=== PATIENT | female | born 1970 | race Caucasian/White ===

== ENCOUNTER 2016-08-19 10:00 | Emergency (ER) | payer OTHER ==
[~2016-08-19 10:00] MED LIST: /PANT40TA; ALLE25CA OR; AMBI10TA PO; AMBI5TAB; ASPI325T; BENTYL10 PO; CALC600T10 PO; CLON1TAB PO; DUONSOL; FERR325T; FERR325T OR; FOLI1TAB; IBUP600T OR; KLON0.5T; LEVA250T; MELA1TAB15 PO; MIRA33504 PO; NAPR250T45 PO; NIFEREX PO; NORC5TAB PO; NUVAMIS2 PV; POTA20TA; PRIL40CA PO; REME15TA; SELSUN BLUE; SENO8.6T10 PO; THERGRAN; THIA100T; UNIS25TA2 PO; ZOLO100T; ZOLO50TA PO; ZOLOFT100 PO
--- NOTE | 2016-08-19 11:09 | EDDOCDS ---
Physician Documentation [facility] Name: Cristal Hong Age: 45 yrs Sex: Female : 1970 Arrival Date: 08/19/2016 Time: 10:00 Bed Triage 2 Private MD: Saji Crowell [facility] Disposition: 08/19/16 11:03 Discharged to Home/Self Care. Impression: Contusion of other part of head, Contusion of eyeball and orbital tissues. - Condition is Stable. - Discharge Instructions: Facial or Scalp Contusion, [id number]. - Medication Reconciliation, Local Pharmacy Hours form. - Follow up: Saji Crowell; When: Call to arrange an appointment; Reason: Further diagnostic work-up, Recheck today's complaints, Continuance of care. Follow up: Emergency Department; When: As soon as possible; Reason: Worsening of conditions. - Problem is new. - Symptoms are unchanged. Historical: - Allergies: no known allergies; - Home Meds: 1. Klonopin 1 mg Oral tab as needed 2. Zoloft 50 mg oral tab 1 tab once daily 3. Ambien 10 mg Oral tab 1 tab once daily 4. nuvaring 5. Melatonin Oral nightly - PMHx: Anemia; Anxiety; Depression; neurofibromytosis; - PSHx: Appendectomy; left elbow fracture; - Social history: Smoking status: Smoking status: Patient states was never smoker of tobacco. No barriers to communication noted, The patient speaks fluent Gabonese, Speaks appropriately for age. - Family history: Not pertinent. - : The pt / caregiver states he / she is not on anticoagulants. Home medication list is obtained from the patient. - Exposure Risk Screening:: None identified. 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 1 in. (154.94 cm); Pain 6/10; 10:01 Body Mass Index 21.73 (52.16 kg, 154.94 cm) sew [place] Coma Score: 10:06 Eye Response: spontaneous(4). Verbal Response: oriented(5). Motor Response: obeys hs1 commands(6). Total: 15. Signatures: Ruth Siu,RN RN ck1 Vish Tovar PA PA btw Gracia Bernabe RN RN hs1 MTDD
--- NOTE | 2016-08-19 11:09 | EDDOCDS ---
Nurse's Notes [facility] Name: Cristal Hong Age: 45 yrs Sex: Female : 1970 Arrival Date: 08/19/2016 Time: 10:00 Bed Triage 2 Private MD: Saji Crowell NCFM Diagnosis: Contusion of other part of head;Contusion of eyeball and orbital tissues Presentation: 08/19 10:06 Presenting complaint: Patient states: fell last night. Fell down approx 5 ft. Patient hs1 has bruising dark purple and red to bilateral eyes and swelling present to left side of forehead. Patient also noted to have dried blood. Patient reports tripping on metal strip on stairs. This patient has no additional risk factors. Mechanism of Injury: resulted from Fall from height greater than 5 stairs;. Adult Sepsis Screening: The patient does not have new or worsening altered mentation. Patient's respiratory rate is less than 22. Systolic blood pressure is greater than 100. Patient has a qSOFA score of 0- Negative Sepsis Screen. Suicide/Homicide risk assessment- the patient denies having any suicidal and/or homicidal ideations and does not present with any other emotional, behavioral or mental health complaints. Status: Patient is not a route service manager or dependent. Transition of care: patient was not received from another setting of care. 10:06 Acuity: YOMI Level 3 hs1 10:06 Method Of Arrival: Walkin/Carried/Asstd hs1 Triage Assessment: 10:16 General: Appears in no apparent distress, Behavior is anxious, cooperative. Pain: hs1 Location: forehead Pain currently is 5 out of 10 on a pain scale. HIV screening NA for this visit Offered previously. Neurological: Level of Consciousness is awake, alert, obeys commands, Reports no additional symptoms. Respiratory: No deficits noted. Derm: Bruising that is bright red, dark purple, on right eye and left eye. 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 Klonopin 1 mg Oral tab as needed 2. Zoloft 50 mg oral tab 1 tab once daily 3. Ambien 10 mg Oral tab 1 tab once daily 4. nuvaring 5. Melatonin Oral nightly - PMHx: Anemia; Anxiety; Depression; neurofibromytosis; - PSHx: Appendectomy; left elbow fracture; - Social history: Smoking status: Smoking status: Patient states was never smoker of tobacco. No barriers to communication noted, The patient speaks fluent Iraqi, Speaks appropriately for age. - Family history: Not pertinent. - : The pt / caregiver states he / she is not on anticoagulants. Home medication list is obtained from the patient. - Exposure Risk Screening:: None identified. Screenin:05 Screening information is obtained from the patient. Fall risk: At risk due to prior ck1 history of falls, The following interventions are performed due to a positive Fall Risk Screen: Fall Risk is added to Special Handling on the patient Summary Screen. A Fall Risk Bracelet was applied to the patient. Side Rails are placed in the up position. A Call House is given with instruction to call for help when getting out of bed. Fall Alert bracelet is placed on the patient. Assistance ADL's: requires no assistance with activities of daily living. Abuse/DV Screen: The patient / caregiver reports he/she is: not in a situation that causes fear, pain or injury. Nutritional screening: No deficits noted. home support is adequate. 11:07 Advance Directives: Currently, there is no health care proxy. ck1 Assessment: 11:07 General: Appears in no apparent distress, comfortable, Behavior is appropriate for age, ck1 cooperative. Pain: Location: head Pain currently is 5 out of 10 on a pain scale. Neurological: Level of Consciousness is awake, alert, obeys commands, Oriented to person, place, time. Respiratory: Respiratory effort is unlabored, Respiratory pattern is regular, symmetrical. GI: No deficits noted. Derm: Bruising that is dark purple, on right eye and left eye. Musculoskeletal: Circulation, motion, and sensation intact Range of motion intact in all extremities. Vital Signs: 10:01 BP 111 / 60; Pulse 70; Resp 16; Temp 97.7(T); Pulse Ox 100% on R/A; Weight 52.16 kg; sew Height 5 ft. 1 in. (154.94 cm); Pain 6/10; 10:01 Body Mass Index 21.73 (52.16 kg, 154.94 cm) sew Vitals: 10:01 Log In Time: August 19, 2016 at 10:00. sew [place] Coma Score: 10:06 Eye Response: spontaneous(4). Verbal Response: oriented(5). Motor Response: obeys hs1 commands(6). Total: 15. ED Course: 10:01 Patient visited by Manasa Odom. sew 10: Saji Crowell is Private Physician. sew 10:01 Patient moved to Waiting sew 10:02 Patient visited by Manasa Odom. sew 10:02 Patient moved to Pre RCE sew 10:08 Triage Initiated hs1 10:41 Vish Tovar PA is PHCP. btw 10:41 Manasa Cabrera MD is Attending Physician. btw 10:41 Patient visited by Vish Tovar PA. btw 10:41 Patient moved to Triage 2 jrd 11:03 Saji Crowell is Referral Physician. btw 11:04 The patient / caregiver is instructed regarding the plan of care and ED course. ck1 11:05 No IV's were initiated during this patient's visit. No procedures done that require ck1 assistance. Order Results: There are currently no results for this order. Outcome: 11:03 Discharge ordered by Provider. btw 11:04 Discharge Assessment: Patient awake, alert and oriented x 3. No cognitive and/or ck1 functional deficits noted. Patient verbalized understanding of disposition instructions. patient administered narcotics - no. The following High Risk Discharge criteria are identified: None. Discharged to home ambulatory. Condition: stable. No special radiology studies were completed. Property :Personal belongings accompany Pt. 11:08 Patient left the ED. ck1 Signatures: Ruth SiuRN RN ck1 Vish Tovar PA PA bt Gracia Bernabe RN RN hs1 Manasa Odom Joseph, JIMMIE ACTIMIZE ARCHITECT jrd MTDD
--- NOTE | 2016-08-21 12:09 | EDDOCDS ---
Nurse's Notes [facility] Name: Cristal Hong Age: 45 yrs Sex: Female : 1970 Arrival Date: 08/19/2016 Time: 10:00 Bed Triage 2 Private MD: Saji Crowell NCFM Diagnosis: Contusion of other part of head;Contusion of eyeball and orbital tissues Presentation: 08/19 10:06 Presenting complaint: Patient states: fell last night. Fell down approx 5 ft. Patient hs1 has bruising dark purple and red to bilateral eyes and swelling present to left side of forehead. Patient also noted to have dried blood. Patient reports tripping on metal strip on stairs. This patient has no additional risk factors. Mechanism of Injury: resulted from Fall from height greater than 5 stairs;. Adult Sepsis Screening: The patient does not have new or worsening altered mentation. Patient's respiratory rate is less than 22. Systolic blood pressure is greater than 100. Patient has a qSOFA score of 0- Negative Sepsis Screen. Suicide/Homicide risk assessment- the patient denies having any suicidal and/or homicidal ideations and does not present with any other emotional, behavioral or mental health complaints. Status: Patient is not a answering service operator or dependent. Transition of care: patient was not received from another setting of care. 10:06 Acuity: YOMI Level 3 hs1 10:06 Method Of Arrival: Walkin/Carried/Asstd hs1 Triage Assessment: 10:16 General: Appears in no apparent distress, Behavior is anxious, cooperative. Pain: hs1 Location: forehead Pain currently is 5 out of 10 on a pain scale. HIV screening NA for this visit Offered previously. Neurological: Level of Consciousness is awake, alert, obeys commands, Reports no additional symptoms. Respiratory: No deficits noted. Derm: Bruising that is bright red, dark purple, on right eye and left eye. 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 Klonopin 1 mg Oral tab as needed 2. Zoloft 50 mg oral tab 1 tab once daily 3. Ambien 10 mg Oral tab 1 tab once daily 4. nuvaring 5. Melatonin Oral nightly - PMHx: Anemia; Anxiety; Depression; neurofibromytosis; - PSHx: Appendectomy; left elbow fracture; - Social history: Smoking status: Smoking status: Patient states was never smoker of tobacco. No barriers to communication noted, The patient speaks fluent Lithuanian, Speaks appropriately for age. - Family history: Not pertinent. - : The pt / caregiver states he / she is not on anticoagulants. Home medication list is obtained from the patient. - Exposure Risk Screening:: None identified. Screenin:05 Screening information is obtained from the patient. Fall risk: At risk due to prior ck1 history of falls, The following interventions are performed due to a positive Fall Risk Screen: Fall Risk is added to Special Handling on the patient Summary Screen. A Fall Risk Bracelet was applied to the patient. Side Rails are placed in the up position. A Call House is given with instruction to call for help when getting out of bed. Fall Alert bracelet is placed on the patient. Assistance ADL's: requires no assistance with activities of daily living. Abuse/DV Screen: The patient / caregiver reports he/she is: not in a situation that causes fear, pain or injury. Nutritional screening: No deficits noted. home support is adequate. 11:07 Advance Directives: Currently, there is no health care proxy. ck1 Assessment: 11:07 General: Appears in no apparent distress, comfortable, Behavior is appropriate for age, ck1 cooperative. Pain: Location: head Pain currently is 5 out of 10 on a pain scale. Neurological: Level of Consciousness is awake, alert, obeys commands, Oriented to person, place, time. Respiratory: Respiratory effort is unlabored, Respiratory pattern is regular, symmetrical. GI: No deficits noted. Derm: Bruising that is dark purple, on right eye and left eye. Musculoskeletal: Circulation, motion, and sensation intact Range of motion intact in all extremities. Vital Signs: 10:01 BP 111 / 60; Pulse 70; Resp 16; Temp 97.7(T); Pulse Ox 100% on R/A; Weight 52.16 kg; sew Height 5 ft. 1 in. (154.94 cm); Pain 6/10; 10:01 Body Mass Index 21.73 (52.16 kg, 154.94 cm) sew Vitals: 10:01 Log In Time: August 19, 2016 at 10:00. sew [place] Coma Score: 10:06 Eye Response: spontaneous(4). Verbal Response: oriented(5). Motor Response: obeys hs1 commands(6). Total: 15. ED Course: 10:01 Patient visited by Manasa Odom. sew 10: Saji Crowell is Private Physician. sew 10:01 Patient moved to Waiting sew 10:02 Patient visited by Manasa Odom. sew 10:02 Patient moved to Pre RCE sew 10:08 Triage Initiated hs1 10:41 Vish Tovar PA is PHCP. btw 10:41 Manasa Cabrera MD is Attending Physician. btw 10:41 Patient visited by Vish Tovar PA. btw 10:41 Patient moved to Triage 2 jrd 11:03 Saji Crowell is Referral Physician. btw 11:04 The patient / caregiver is instructed regarding the plan of care and ED course. ck1 11:05 No IV's were initiated during this patient's visit. No procedures done that require ck1 assistance. 13:24 T-Sheet-- Draft Copy was scanned into [employer] Screening and attached to record. gb Order Results: There are currently no results for this order. Outcome: 11:03 Discharge ordered by Provider. btw 11:04 Discharge Assessment: Patient awake, alert and oriented x 3. No cognitive and/or ck1 functional deficits noted. Patient verbalized understanding of disposition instructions. patient administered narcotics - no. The following High Risk Discharge criteria are identified: None. Discharged to home ambulatory. Condition: stable. No special radiology studies were completed. Property :Personal belongings accompany Pt. 11:08 Patient left the ED. ck1 Signatures: Radha Gonzales, Reg Reg Ruth DiazRN RN ck1 Vish Tovar PA PA btGracia Fuller RN RN hs1 Manasa Odom sew Jayce Zhang PCA INTERNATIONAL MANAGER jrd Chart Complete MTDD
--- NOTE | 2016-08-21 12:09 | EDDOCDS ---
Physician Documentation [facility] Name: Cristal Hong Age: 45 yrs Sex: Female : 1970 Arrival Date: 08/19/2016 Time: 10:00 Bed Triage 2 Private MD: Saji Crowell [facility] Disposition: 08/19/16 11:03 Discharged to Home/Self Care. Impression: Contusion of other part of head, Contusion of eyeball and orbital tissues. - Condition is Stable. - Discharge Instructions: Facial or Scalp Contusion, [id number]. - Medication Reconciliation, Local Pharmacy Hours form. - Follow up: Saji Crowell; When: Call to arrange an appointment; Reason: Further diagnostic work-up, Recheck today's complaints, Continuance of care. Follow up: Emergency Department; When: As soon as possible; Reason: Worsening of conditions. - Problem is new. - Symptoms are unchanged. Historical: - Allergies: no known allergies; - Home Meds: 1. Klonopin 1 mg Oral tab as needed 2. Zoloft 50 mg oral tab 1 tab once daily 3. Ambien 10 mg Oral tab 1 tab once daily 4. nuvaring 5. Melatonin Oral nightly - PMHx: Anemia; Anxiety; Depression; neurofibromytosis; - PSHx: Appendectomy; left elbow fracture; - Social history: Smoking status: Smoking status: Patient states was never smoker of tobacco. No barriers to communication noted, The patient speaks fluent Mauritian, Speaks appropriately for age. - Family history: Not pertinent. - : The pt / caregiver states he / she is not on anticoagulants. Home medication list is obtained from the patient. - Exposure Risk Screening:: None identified. 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 1 in. (154.94 cm); Pain 6/10; 10:01 Body Mass Index 21.73 (52.16 kg, 154.94 cm) sew [place] Coma Score: 10:06 Eye Response: spontaneous(4). Verbal Response: oriented(5). Motor Response: obeys hs1 commands(6). Total: 15. MDM: 13:24 T-Sheet-- Draft Copy was scanned into [employer] and attached to record. gb Signatures: Radha Gonzales, Reg Reg gb Ruth SiuRN RN ck1 Vish Tovar PA PA btw Gracia Bernabe RN RN hs1 The chart was reviewed and I authenticate all verbal orders and agree with the evaluation and treatment provided.Attachments: 13:24 T-Sheet-- Draft Copy gb Chart Complete MTDD
--- NOTE | 2016-08-21 12:09 | EDDOCDS ---
Physician Documentation [facility] Name: Cristal Hong Age: 45 yrs Sex: Female : 1970 Arrival Date: 08/19/2016 Time: 10:00 Bed Triage 2 Private MD: Saji Crowell [facility] Disposition: 08/19/16 11:03 Discharged to Home/Self Care. Impression: Contusion of other part of head, Contusion of eyeball and orbital tissues. - Condition is Stable. - Discharge Instructions: Facial or Scalp Contusion, [id number]. - Medication Reconciliation, Local Pharmacy Hours form. - Follow up: Saji Crowell; When: Call to arrange an appointment; Reason: Further diagnostic work-up, Recheck today's complaints, Continuance of care. Follow up: Emergency Department; When: As soon as possible; Reason: Worsening of conditions. - Problem is new. - Symptoms are unchanged. Historical: - Allergies: no known allergies; - Home Meds: 1. Klonopin 1 mg Oral tab as needed 2. Zoloft 50 mg oral tab 1 tab once daily 3. Ambien 10 mg Oral tab 1 tab once daily 4. nuvaring 5. Melatonin Oral nightly - PMHx: Anemia; Anxiety; Depression; neurofibromytosis; - PSHx: Appendectomy; left elbow fracture; - Social history: Smoking status: Smoking status: Patient states was never smoker of tobacco. No barriers to communication noted, The patient speaks fluent [place] Verdean, Speaks appropriately for age. - Family history: Not pertinent. - : The pt / caregiver states he / she is not on anticoagulants. Home medication list is obtained from the patient. - Exposure Risk Screening:: None identified. 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 1 in. (154.94 cm); Pain 6/10; 10:01 Body Mass Index 21.73 (52.16 kg, 154.94 cm) sew [place] Coma Score: 10:06 Eye Response: spontaneous(4). Verbal Response: oriented(5). Motor Response: obeys hs1 commands(6). Total: 15. MDM: 13:24 T-Sheet-- Draft Copy was scanned into [employer] and attached to record. gb Signatures: Radha Gonzales, Reg Reg gb Ruth SiuRN RN ck1 Vish Tovar PA PA btw Gracia Bernabe RN RN hs1 The chart was reviewed and I authenticate all verbal orders and agree with the evaluation and treatment provided.Attachments: 13:24 T-Sheet-- Draft Copy gb Chart Complete MTDD
== END 2016-08-19 11:08 | disposition home or self-care (01) ==
LOC: M ED 10:00
DX: S00.83XA Contusion of other part of head, initial encounter (principal); W10.9XXA Fall (on) (from) unspecified stairs and steps, initial encounter; Y92.019 Unspecified place in single-family (private) house as the place of occurrence of the external cause; Y93.01 Activity, walking, marching and hiking; Y99.8 Other external cause status; D64.9 Anemia, unspecified; F41.9 Anxiety disorder, unspecified; F32.9 Major depressive disorder, single episode, unspecified; Q85.00 Neurofibromatosis, unspecified; Z79.899 Other long term (current) drug therapy; Z79.3 Long term (current) use of hormonal contraceptives

== ENCOUNTER 2016-11-03 21:43 | Emergency (ER) | payer OTHER ==
[~2016-11-03] VITALS: Ht 157.5 cm; Wt 50.8 kg
[~2016-11-03 21:43] MED LIST changes: +NORC1TAB4 PO; -NORC5TAB PO
[2016-11-03] MEDS ORDERED: MULTIVITAMIN -ADULT INJECTION 10 ML, THIAMINE INJection 100 MG, FOLIC ACID 1 MG in NS 1... IV ONE (22:00)
[2016-11-03] MEDS ORDERED: NS 500 ML IV ONE (22:00)
[2016-11-03 22:48] LABS: METHADONE URINE NEGATIVE (NEGATIVE)
[2016-11-03 23:07] LABS: BASO % 0.7 % (0.0-1.0); EOS # 0.1 K/mm3 (0.0-0.50); EOS % 1.6 % (0.0-3.0); LARGE UNSTAINED CELL # 0.2 K/mm3 (0.0-0.4); LARGE UNSTAINED CELL % 2.9 % (0.0-4.0); LYMPH # 1.3 K/mm3 (1.5-4.5); LYMPH % 15.4 % (24.0-44.0); MEAN CORPUSCULAR HEMOGLOBIN 30.5 pg (27.0-33.0); MEAN CORPUSCULAR HGB CONC 31.9 g/dl (32.0-36.5); MEAN CORPUSCULAR VOLUME 95.8 fl (80.0-96.0); MONO # 0.5 K/mm3 (0.0-0.8); MONO % 7.6 % (0.0-5.0); NEUTROPHILS # 4.9 K/mm3 (1.8-7.7); NEUTROPHILS % 71.7 % (36.0-66.0); PLATELET COUNT, AUTOMATED 239 k/mm3 (150-450); RED CELL DISTRIBUTION WIDTH 12.6 % (11.5-14.5); WHITE BLOOD COUNT 6.9 K/mm3 (4.0-10.0)
[2016-11-03 23:19] LABS: CONTROL LINE HCG INT CTR LINE PRESENT
--- NOTE | 2016-11-03 23:20 | REPUSA ---
HISTORY: Trauma TECHNIQUE: -CT head: Axial CT was obtained at 5 mm slice thickness from the skull base to the vertex without the use of intravenous contrast. -CT C-spine: Contiguous noncontrast transaxial 2.[address] images were obtained through the cervical sp ine. Reconstructions were then created in the axial plane at 1.25 mm from which reformations were gen erated in the coronal and sagittal planes. COMPARISON: None FINDINGS: CT head: No acute intracranial hemorrhage or evidence of acute transcortical ischemia. No intra-axial or extra ction fluid collection, subfalcine herniation, midline shift, or hydrocephalus. The posterior fossa and brainstem are within normal limits. The osseous structures are intact. The pa ranasal sinuses, mastoid air cells, and orbital compartments are unremarkable. 5.3 x 1.7 cm right fro ntal scalp hematoma. CT C-spine: No acute fracture, dislocation, or suspicious lesion. Moderate C5-C7 degenerative changes with endpla te sclerosis, disc space narrowing, and spurring with broad-based disc bulges impinging on the ventra l thecal sac with mild neural foraminal narrowing and mild spinal canal stenosis. Odontoid process is intact. The neck soft tissues and airways are unremarkable with no hematoma or swelling. IMPRESSION: 1. No acute intracranial injury. 5.3 x 1.7 cm right frontal scalp hematoma. 2. No acute fracture. Moderate C5-C7 degenerative changes as described. If there are persistent sympt oms, MRI C-spine is recommended to assess for protruding disc pathology or exclude subtle acute fract ure.
[2016-11-03 23:22] LABS: OSMOLALITY SERUM 330 MOSM/KG (275-295)
[2016-11-03 23:37] LABS: ALBUMIN 3.3 GM/DL (3.2-5.2); ALBUMIN/GLOBULIN RATIO 1.06 (1.00-1.93); ALKALINE PHOSPHATASE 76 U/L (45-117); ALT/SGPT 18 U/L (12-78); ANION GAP 9 MEQ/L (8-16); AST/SGOT 17 U/L (15-37); BILIRUBIN,DIRECT < 0.1 MG/DL (0.0-0.2); BILIRUBIN,TOTAL 0.1 MG/DL (0.2-1.0); BLOOD UREA NITROGEN 9 MG/DL (7-18); CALCIUM LEVEL 8.6 MG/DL (8.5-10.1); CARBON DIOXIDE LEVEL 25 MEQ/L (21-32); CHLORIDE LEVEL 109 MEQ/L (98-107); CREATININE FOR GFR 0.77 MG/DL (0.55-1.02); GLOMERULAR FILTRATION RATE > 60.0 (>58); GLUCOSE, FASTING 83 MG/DL (70-105); POTASSIUM SERUM 3.6 MEQ/L (3.5-5.1); SODIUM LEVEL 143 MEQ/L (136-145); TOTAL PROTEIN 6.4 GM/DL (6.4-8.2)
[2016-11-04 00:18] LABS: FREE T4 0.77 NG/DL (0.76-1.46)
[2016-11-04 02:53] VITALS: BP 106/61
--- NOTE | 2016-11-04 08:15 | REP ---
Portable chest: Comparison is 01/22/2016. The lung johnson are clear. The cardiac size is normal. The ignacia, mediastinum, and bony thorax are unremarkable. Impression: Negative portable chest. There is no interval change. Signed by Shravan Ramos MD 11/04/2016 08:07 A
--- NOTE | 2016-11-04 18:33 | ECGEPIP ---
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
== END 2016-11-04 02:52 | disposition home or self-care (01) ==
LOC: EDBD 21:43 → M ED 22:33
DX: F10.129 Alcohol abuse with intoxication, unspecified (principal)
CPT/HCPCS: 70450; 71010; 72125; 80048; 80076; 80306; 81001; 82140; 82550; 82553; 83605; 83930; 84439; 84443; 84703; 85025; 93005; 93041; 94760; 96374; 99285; G0480; J3411

== ENCOUNTER 2016-11-11 22:01 | Emergency (ER) | payer OTHER ==
[2016-11-11 23:44] LABS: MEAN CORPUSCULAR HEMOGLOBIN 30.2 pg (27.0-33.0); MEAN CORPUSCULAR HGB CONC 31.8 g/dl (32.0-36.5); RED CELL DISTRIBUTION WIDTH 12.7 % (11.5-14.5); WHITE BLOOD COUNT 7.4 K/mm3 (4.0-10.0)
[2016-11-12 00:21] LABS: METHADONE URINE NEGATIVE (NEGATIVE)
[2016-11-12 00:27] LABS: ALBUMIN 3.4 GM/DL (3.2-5.2); ALKALINE PHOSPHATASE 86 U/L (45-117); ALT/SGPT 19 U/L (12-78); ANION GAP 6 MEQ/L (8-16); AST/SGOT 18 U/L (15-37); BILIRUBIN,DIRECT 0.1 MG/DL (0.0-0.2); BILIRUBIN,TOTAL 0.2 MG/DL (0.2-1.0); BLOOD UREA NITROGEN 10 MG/DL (7-18); CALCIUM LEVEL 8.8 MG/DL (8.5-10.1); CARBON DIOXIDE LEVEL 27 MEQ/L (21-32); CHLORIDE LEVEL 109 MEQ/L (98-107); CREATININE FOR GFR 0.63 MG/DL (0.55-1.02); GLOMERULAR FILTRATION RATE > 60.0 (>58); GLUCOSE, FASTING 87 MG/DL (70-105); POTASSIUM SERUM 3.8 MEQ/L (3.5-5.1); SODIUM LEVEL 142 MEQ/L (136-145); TOTAL PROTEIN 6.8 GM/DL (6.4-8.2)
[2016-11-12 04:11] VITALS: BP 136/71
== END 2016-11-12 04:23 | disposition home or self-care (01) ==
LOC: M ED 22:58
DX: F41.1 Generalized anxiety disorder (principal); F10.10 Alcohol abuse, uncomplicated
CPT/HCPCS: 36415; 80048; 80076; 80306; 84443; 85027; 99285; G0480

== ENCOUNTER 2016-11-23 21:09 | Emergency (ER) | payer OTHER ==
[~2016-11-23] VITALS: Ht 154.9 cm; Wt 54.4 kg
[2016-11-23] MEDS ORDERED: TRAZ50TA4 PO (21:36)
[2016-11-24 00:01] VITALS: BP 92/53
--- NOTE | 2016-11-24 11:48 | ED PDOC ---
Post-Departure Follow-Up This record was completely or partially completed on paper due to EMR downtime. Please see scanned paper chart. Manasa Cabrera MD, Sarah MD Nov 24, 2016 11:48
== END 2016-11-24 03:57 | disposition home or self-care (01) ==
LOC: EDBD 21:09 → M ED 22:48
DX: F10.129 Alcohol abuse with intoxication, unspecified (principal)
CPT/HCPCS: 99284; G0480

== ENCOUNTER 2017-01-19 12:44 | Emergency (ER) | payer OTHER ==
[~2017-01-19] VITALS: Ht 154.9 cm; Wt 49.5 kg
[~2017-01-19 12:44] MED LIST changes: +TRAZ50TA4 PO
--- NOTE | 2017-01-19 15:26 | REP ---
CT BRAIN WITHOUT CONTRAST: REASON: Vertigo. COMPARISON: 11/03/2016 TECHNIQUE: 4.5 mm contiguous transaxial sections were obtained from the skull base to the cerebral convexities with thin cuts through the posterior fossa without the administration of intravenous contrast. FINDINGS: The ventricles and sulci are consistent with the patient's age. There are no extra-axial fluid collections. There is no mass effect. The deep cerebral white matter is consistent with the patient's age. The orbital and petrous structures , cerebellopontine angles, and posterior fossa are unremarkable. The sella turcica, cavernous, and paracavernous structures are essentially unremarkable. The visualized portions of the paranasal sinuses and mastoid air cells are clear. Images of the skull base show no gross abnormality. IMPRESSION: Essentially unremarkable CT examination of the brain. No significant change from the prior exam other than complete resolution of the previously present right frontoparietal scalp hematoma. Signed by Ozzy Mayorga DO 01/19/2017 03:35 P
[2017-01-19 15:27] LABS: BASO % 0.5 % (0.0-1.0); EOS % 0.2 % (0.0-3.0); LARGE UNSTAINED CELL # 0.1 K/mm3 (0.0-0.4); LARGE UNSTAINED CELL % 1.7 % (0.0-4.0); LYMPH # 1.1 K/mm3 (1.5-4.5); LYMPH % 11.7 % (24.0-44.0); MEAN CORPUSCULAR HEMOGLOBIN 31.1 pg (27.0-33.0); MEAN CORPUSCULAR HGB CONC 32.8 g/dl (32.0-36.5); MEAN CORPUSCULAR VOLUME 94.8 fl (80.0-96.0); MONO # 0.3 K/mm3 (0.0-0.8); MONO % 3.9 % (0.0-5.0); NEUTROPHILS # 6.7 K/mm3 (1.8-7.7); PLATELET COUNT, AUTOMATED 317 k/mm3 (150-450); RED CELL DISTRIBUTION WIDTH 12.3 % (11.5-14.5); WHITE BLOOD COUNT 8.2 K/mm3 (4.0-10.0)
[2017-01-19 15:54] LABS: ANION GAP 8 MEQ/L (8-16); BLOOD UREA NITROGEN 12 MG/DL (7-18); CALCIUM LEVEL 9.4 MG/DL (8.5-10.1); CARBON DIOXIDE LEVEL 28 MEQ/L (21-32); CHLORIDE LEVEL 103 MEQ/L (98-107); CREATININE FOR GFR 0.73 MG/DL (0.55-1.02); GLOMERULAR FILTRATION RATE > 60.0 (>58); GLUCOSE, FASTING 105 MG/DL (70-105); MAGNESIUM LEVEL 2.2 MG/DL (1.8-2.4); POTASSIUM SERUM 4.1 MEQ/L (3.5-5.1); SODIUM LEVEL 139 MEQ/L (136-145)
[2017-01-19 16:08] LABS: VITAMIN B12 LEVEL 421 PG/ML (247-911)
[2017-01-19 17:07] VITALS: BP 118/58
== END 2017-01-19 17:10 | disposition left against medical advice (07) ==
LOC: M ED 15:00
DX: R42 Dizziness and giddiness (principal); R26.81 Unsteadiness on feet

== ENCOUNTER → 2018-02-14 | Outpatient (CLI) | payer OTHER ==
[2018-02-14 13:19] LABS: BASO # 0.1 10^3/uL (0.0-0.2); BASO % 0.6 % (0.0-1.0); EOS # 0.1 10^3/uL (0.0-0.50); EOS % 1.4 % (0.0-3.0); HEMATOCRIT 37.9 % (36.0-47.0); HEMOGLOBIN 11.7 g/dl (12.0-15.5); IMMATURE GRANULOCYTE % 0.4 % (0-3.0); LYMPH # 1.1 10^3/uL (1.5-4.5); LYMPH % 14.6 % (24.0-44.0); MEAN CORPUSCULAR HEMOGLOBIN 28.7 pg (27.0-33.0); MEAN CORPUSCULAR HGB CONC 30.9 g/dl (32.0-36.5); MEAN CORPUSCULAR VOLUME 93.1 fl (80.0-96.0); MONO % 13.4 % (0.0-5.0); NEUTROPHILS # 5.4 10^3/uL (1.8-7.7); NEUTROPHILS % 69.6 % (36.0-66.0); PLATELET COUNT, AUTOMATED 349 10^3/uL (150-450); RED BLOOD COUNT 4.07 10^6/uL (4.00-5.40); RED CELL DISTRIBUTION WIDTH 14.1 % (11.5-14.5); WHITE BLOOD COUNT 7.8 10^3/uL (4.0-10.0)
[2018-02-14 13:31] LABS: ALBUMIN 3.4 GM/DL (3.2-5.2); ALKALINE PHOSPHATASE 74 U/L (45-117); ALT/SGPT 19 U/L (12-78); ANION GAP 8 MEQ/L (8-16); AST/SGOT 15 U/L (7-37); BILIRUBIN,TOTAL 0.3 MG/DL (0.2-1.0); BLOOD UREA NITROGEN 10 MG/DL (7-18); CALCIUM LEVEL 9.2 MG/DL (8.5-10.1); CARBON DIOXIDE LEVEL 28 MEQ/L (21-32); CHLORIDE LEVEL 105 MEQ/L (98-107); CREATININE FOR GFR 0.65 MG/DL (0.55-1.30); GLOMERULAR FILTRATION RATE > 60.0 (>58); GLUCOSE, FASTING 88 MG/DL (70-100); LIPASE 127 U/L (73-393); POTASSIUM SERUM 4.9 MEQ/L (3.5-5.1); SODIUM LEVEL 141 MEQ/L (136-145); TOTAL PROTEIN 6.8 GM/DL (6.4-8.2)
== END ==
LOC: M WUC 10:00
DX: A09 Infectious gastroenteritis and colitis, unspecified (principal); N39.0 Urinary tract infection, site not specified
CPT/HCPCS: 83690

== ENCOUNTER → 2018-04-07 | Outpatient (CLI) | payer OTHER ==
[2018-04-07 13:20] LABS: BASO # 0.1 10^3/uL (0.0-0.2); BASO % 0.7 % (0.0-1.0); EOS # 0.1 10^3/uL (0.0-0.50); EOS % 0.6 % (0.0-3.0); HEMATOCRIT 39.8 % (36.0-47.0); HEMOGLOBIN 12.3 g/dl (12.0-15.5); IMMATURE GRANULOCYTE % 0.2 % (0-3.0); LYMPH # 1.1 10^3/uL (1.5-4.5); LYMPH % 13.2 % (24.0-44.0); MEAN CORPUSCULAR HEMOGLOBIN 28.4 pg (27.0-33.0); MEAN CORPUSCULAR HGB CONC 30.9 g/dl (32.0-36.5); MEAN CORPUSCULAR VOLUME 91.9 fl (80.0-96.0); MONO # 0.8 10^3/uL (0.0-0.8); MONO % 9.5 % (0.0-5.0); NEUTROPHILS # 6.3 10^3/uL (1.8-7.7); NEUTROPHILS % 75.8 % (36.0-66.0); PLATELET COUNT, AUTOMATED 361 10^3/uL (150-450); RED BLOOD COUNT 4.33 10^6/uL (4.00-5.40); RED CELL DISTRIBUTION WIDTH 16.5 % (11.5-14.5); WHITE BLOOD COUNT 8.3 10^3/uL (4.0-10.0)
[2018-04-07 15:57] LABS: ALBUMIN 3.9 GM/DL (3.2-5.2); ALBUMIN/GLOBULIN RATIO 1.15 (1.00-1.93); ALKALINE PHOSPHATASE 56 U/L (45-117); ALT/SGPT 29 U/L (12-78); ANION GAP 7 MEQ/L (8-16); AST/SGOT 23 U/L (7-37); BILIRUBIN,TOTAL 0.3 MG/DL (0.2-1.0); BLOOD UREA NITROGEN 9 MG/DL (7-18); CALCIUM LEVEL 8.9 MG/DL (8.5-10.1); CARBON DIOXIDE LEVEL 26 MEQ/L (21-32); CHLORIDE LEVEL 107 MEQ/L (98-107); CREATININE FOR GFR 0.74 MG/DL (0.55-1.30); FREE T4 0.78 NG/DL (0.76-1.46); GLOMERULAR FILTRATION RATE > 60.0 (>58); GLUCOSE, FASTING 92 MG/DL (70-100); IRON (FE) 75 UG/DL (50-170); PERCENT SATURATION 17.5 % (13.2-45.0); POTASSIUM SERUM 4.2 MEQ/L (3.5-5.1); SODIUM LEVEL 140 MEQ/L (136-145); TOTAL IRON BINDING CAPACITY 429 UG/DL (250-450); TOTAL PROTEIN 7.3 GM/DL (6.4-8.2)
[2018-04-09 00:07] LABS: TISSUE TRANSGLUTAMINASE IgA <2 U/mL (0-3)
[2018-04-11 00:07] LABS: CHROMOGRANIN A 3 nmol/L (0-5)
[2018-04-11 00:07] LABS: GASTRIN 20 pg/mL (0-115)
== END ==
LOC: M SMT 08:44
DX: R19.4 Change in bowel habit (principal)
CPT/HCPCS: 83550

== ENCOUNTER → 2018-04-18 | Outpatient (CLI) | payer OTHER ==
[~2018-04-18] MED LIST changes: -/PANT40TA; -ALLE25CA OR; -AMBI10TA PO; -AMBI5TAB; -ASPI325T; -BENTYL10 PO; -CALC600T10 PO; -CLON1TAB PO; -DUONSOL; -FERR325T; -FERR325T OR; -FOLI1TAB; +GASTROGRAFIN SOLUTION 30ML (Q9963) As Ordered; -IBUP600T OR; +ISOVUE-370 76% 100ML VIAL (Q9967) As Ordered; -KLON0.5T; -LEVA250T; -MELA1TAB15 PO; -MIRA33504 PO; -NAPR250T45 PO; -NIFEREX PO; -NORC1TAB4 PO; -NUVAMIS2 PV; -POTA20TA; -PRIL40CA PO; -REME15TA; -SELSUN BLUE; -SENO8.6T10 PO; -THERGRAN; -THIA100T; -TRAZ50TA4 PO; -UNIS25TA2 PO; -ZOLO100T; -ZOLO50TA PO; -ZOLOFT100 PO
== END ==
LOC: M RAD 15:03
DX: R63.4 Abnormal weight loss (principal); D50.9 Iron deficiency anemia, unspecified
CPT/HCPCS: Q9963

== ENCOUNTER 2018-05-05 11:07 | Day surgery (SDC) | payer OTHER ==
[~2018-05-05 11:07] MED LIST changes: -GASTROGRAFIN SOLUTION 30ML (Q9963) As Ordered; -ISOVUE-370 76% 100ML VIAL (Q9967) As Ordered; +LIDOCAINE 2% INJ 100 MG/5 ML SDV (FOR ANES.) As Ordered; +PROPOFOL 200 MG/20 ML VIAL As Ordered
[2018-05-05] MEDS: NS 1,000 ML IV (11:44)
[2018-05-05] MEDS ORDERED: PROPOFOL 200 MG/20 ML VIAL As Ordered (13:23)
== END 2018-05-05 14:41 | disposition home or self-care (01) ==
LOC: M OPP 11:07
DX: R63.4 Abnormal weight loss (principal); R19.4 Change in bowel habit; R10.84 Generalized abdominal pain; K62.1 Rectal polyp; D12.3 Benign neoplasm of transverse colon; K62.89 Other specified diseases of anus and rectum; Q43.8 Other specified congenital malformations of intestine; R00.8 Other abnormalities of heart beat; D64.9 Anemia, unspecified; Q85.00 Neurofibromatosis, unspecified; M54.89 Other dorsalgia; M54.2 Cervicalgia; M81.0 Age-related osteoporosis without current pathological fracture; F50.9 Eating disorder, unspecified; F41.9 Anxiety disorder, unspecified; F32.9 Major depressive disorder, single episode, unspecified; Z79.899 Other long term (current) drug therapy; Z80.52 Family history of malignant neoplasm of bladder; Z80.0 Family history of malignant neoplasm of digestive organs
CPT/HCPCS: 45385

== ENCOUNTER → 2019-04-05 | Outpatient (REF) | payer OTHER ==
[~2019-04-05] MED LIST changes: +ALLE25CA OR; +AMBI10TA PO; +AMBI5TAB; +ASPI325T; +BENTYL10 PO; +CALC600T31 PO; +CALCTAB29 PO; +CLON1TAB8 PO; +DUONSOL; +ELINTAB PO; +FERR325T; +FERR325T OR; +FOLI1TAB; +IBUP600T OR; +KLON0.5T; +KLON0.5T PO; +LEVA250T; -LIDOCAINE 2% INJ 100 MG/5 ML SDV (FOR ANES.) As Ordered; +MELA1TAB15 PO; +MIRA33504 PO; +NAPR250T82 PO; +NIFEREX PO; +NORC1TAB7 PO; +NUVAMIS2 PV; +POTA20TA; +PRIL40CA PO; -PROPOFOL 200 MG/20 ML VIAL As Ordered; +PROT1TAB2; +REME15TA; +SELSUN BLUE; +SENO8.6T10 PO; +THERGRAN; +THIA100T; +TRAZ-252 PO; +UNIS25TA3 PO; +ZOLO100T; +ZOLO50TA PO; +ZOLOFT100 PO
[2019-04-05 13:01] LABS: BASO # 0.1 10^3/uL (0.0-0.2); EOS # 0.1 10^3/uL (0.0-0.5); EOS % 1.1 % (0.0-3.0); HEMATOCRIT 40.7 % (36.0-47.0); LYMPH # 1.4 10^3/uL (1.5-5.0); LYMPH % 22.4 % (24.0-44.0); MEAN CORPUSCULAR HEMOGLOBIN 29.3 pg (27.0-33.0); MEAN CORPUSCULAR HGB CONC 31.9 g/dl (32.0-36.5); MEAN CORPUSCULAR VOLUME 91.9 fl (80.0-96.0); MONO # 0.8 10^3/uL (0.0-0.8); MONO % 12.4 % (0.0-5.0); NEUTROPHILS # 3.8 10^3/uL (1.5-8.5); NEUTROPHILS % 62.4 % (36.0-66.0); PLATELET COUNT, AUTOMATED 311 10^3/uL (150-450); RED BLOOD COUNT 4.43 10^6/uL (4.00-5.40); WHITE BLOOD COUNT 6.1 10^3/uL (4.0-10.0)
[2019-04-05 13:13] LABS: ALT/SGPT 25 U/L (12-78); BILIRUBIN,TOTAL 0.4 MG/DL (0.2-1.0); BLOOD UREA NITROGEN 13 MG/DL (7-18); CALCIUM LEVEL 9.3 MG/DL (8.5-10.1); CARBON DIOXIDE LEVEL 25 MEQ/L (21-32); CHLORIDE LEVEL 106 MEQ/L (98-107); CHOLESTEROL LEVEL 209 MG/DL (<200); CHOLESTEROL RISK RATIO 1.849 (<5); FREE T4 0.71 NG/DL (0.76-1.46); GLOMERULAR FILTRATION RATE > 60.0 (>58); GLUCOSE, FASTING 99 MG/DL (70-100); HDL CHOLESTEROL 113 MG/DL (>40); LDL CHOLESTEROL 83 MG/DL (<100); NON-HDL-C 96 MG/DL; POTASSIUM SERUM 4.3 MEQ/L (3.5-5.1); SODIUM LEVEL 138 MEQ/L (136-145); TOTAL PROTEIN 7.3 GM/DL (6.4-8.2); TRIGLYCERIDES LEVEL 64 MG/DL (<150)
== END ==
LOC: M LAB REF 11:43
PROVIDERS: ATTEND Nurse Practitioner Family
DX: Z00.00 Encounter for general adult medical examination without abnormal findings (principal)

== ENCOUNTER → 2019-05-16 | Outpatient (REF) | payer OTHER ==
[2019-05-16 14:01] LABS: FREE T4 0.87 NG/DL (0.76-1.46)
[2019-05-16 14:04] LABS: FOLLICLE STIMULATING HORMONE 5.7 mIU/mL
== END ==
LOC: M LAB REF 12:23
PROVIDERS: ATTEND Nurse Practitioner Family
DX: N92.6 Irregular menstruation, unspecified (principal); E03.9 Hypothyroidism, unspecified

== ENCOUNTER → 2019-08-06 | Outpatient (REF) | payer OTHER, MEDICAID | LOC: M LAB REF 18:49 | PROVIDERS: ATTEND Physician Assistant | DX: Z12.4 Encounter for screening for malignant neoplasm of cervix (principal) ==

== ENCOUNTER → 2019-11-15 | Outpatient (REF) | payer OTHER ==
[2019-11-15 13:01] LABS: FREE T4 0.84 NG/DL (0.76-1.46); THYROID STIMULATING HORMONE 2.22 uIU/ML (0.358-3.740)
== END ==
LOC: M LAB REF 12:18
PROVIDERS: ATTEND Physician Assistant
DX: E03.9 Hypothyroidism, unspecified (principal)

== ENCOUNTER → 2020-05-23 | Outpatient (REF) | payer OTHER ==
[2020-05-23 12:34] LABS: BASO # 0.1 10^3/uL (0.0-0.2); BASO % 0.9 % (0.0-1.0); EOS # 0.1 10^3/uL (0.0-0.5); EOS % 1.5 % (0.0-3.0); HEMATOCRIT 37.7 % (36.0-47.0); HEMOGLOBIN 11.8 g/dl (12.0-15.5); LYMPH # 1.1 10^3/uL (1.5-5.0); LYMPH % 16.1 % (24.0-44.0); MEAN CORPUSCULAR HEMOGLOBIN 29.3 pg (27.0-33.0); MEAN CORPUSCULAR HGB CONC 31.3 g/dl (32.0-36.5); MEAN CORPUSCULAR VOLUME 93.5 fl (80.0-96.0); MONO # 0.8 10^3/uL (0.0-0.8); NEUTROPHILS # 4.7 10^3/uL (1.5-8.5); NEUTROPHILS % 69.1 % (36.0-66.0); PLATELET COUNT, AUTOMATED 354 10^3/uL (150-450); RED BLOOD COUNT 4.03 10^6/uL (4.00-5.40); WHITE BLOOD COUNT 6.8 10^3/uL (4.0-10.0)
[2020-05-23 13:15] LABS: ALBUMIN 3.5 GM/DL (3.2-5.2); ALT/SGPT 13 U/L (12-78); BILIRUBIN,TOTAL 0.3 MG/DL (0.2-1.0); BLOOD UREA NITROGEN 15 MG/DL (7-18); CALCIUM LEVEL 9.4 MG/DL (8.5-10.1); CARBON DIOXIDE LEVEL 28 MEQ/L (21-32); CHLORIDE LEVEL 104 MEQ/L (98-107); CHOLESTEROL LEVEL 207 MG/DL (<200); CHOLESTEROL RISK RATIO 2.352 (<5); CREATININE FOR GFR 0.65 MG/DL (0.55-1.30); FREE T4 0.86 NG/DL (0.76-1.46); GLOMERULAR FILTRATION RATE > 60.0 (>58); GLUCOSE, FASTING 95 MG/DL (70-100); HDL CHOLESTEROL 88 MG/DL (>40); LDL CHOLESTEROL 101 MG/DL (<100); NON-HDL-C 119 MG/DL; POTASSIUM SERUM 4.3 MEQ/L (3.5-5.1); SODIUM LEVEL 136 MEQ/L (136-145); TOTAL PROTEIN 6.9 GM/DL (6.4-8.2); TRIGLYCERIDES LEVEL 90 MG/DL (<150)
== END ==
LOC: M LAB REF 11:39
PROVIDERS: ATTEND Physician Assistant
DX: R94.6 Abnormal results of thyroid function studies (principal); Z13.228 Encounter for screening for other metabolic disorders

== ENCOUNTER 2021-12-06 23:39 | Emergency (ER) | payer OTHER ==
[~2021-12-06] VITALS: Ht 154.9 cm; Wt 48.2 kg
[2021-12-06 23:39] VITALS: BP 109/65
[2021-12-07] MEDS ORDERED: CLON1TAB8 (08:25)
[2021-12-07] MEDS ORDERED: LEXA1TAB (08:25)
[2021-12-07] MEDS ORDERED: IBUP200T46 PO (08:25)
[2021-12-07] MEDS ORDERED: LEVO25TA5 (08:25)
[2021-12-07] MEDS ORDERED: LUBI8CAP (08:25)
[2021-12-07] MEDS ORDERED: HYDR-3713 PO (11:07)
== END 2021-12-07 00:50 | disposition left against medical advice (07) ==
LOC: M ED 23:39
DX: Z53.29 Procedure and treatment not carried out because of patient's decision for other reasons (principal)

== ENCOUNTER 2021-12-07 08:13 | Emergency (ER) | payer OTHER ==
[~2021-12-07] VITALS: Ht 154.9 cm; Wt 50.0 kg
[2021-12-07] MEDS ORDERED: CLON1TAB8 (08:25)
[2021-12-07] MEDS ORDERED: IBUP200T46 PO (08:25)
[2021-12-07] MEDS ORDERED: LEVO25TA5 (08:25)
[2021-12-07] MEDS ORDERED: LUBI8CAP (08:25)
[2021-12-07] MEDS ORDERED: LEXA1TAB (08:25)
[2021-12-07] MEDS ORDERED: HYDR-3713 PO (11:07)
[2021-12-07 11:18] VITALS: BP 115/67
== END 2021-12-07 11:34 | disposition home or self-care (01) ==
LOC: M ED 08:13
DX: S42.212A Unspecified displaced fracture of surgical neck of left humerus, initial encounter for closed fracture (principal); W06.XXXA Fall from bed, initial encounter; Y92.013 Bedroom of single-family (private) house as the place of occurrence of the external cause; E03.9 Hypothyroidism, unspecified; F33.9 Major depressive disorder, recurrent, unspecified; F41.9 Anxiety disorder, unspecified; M81.0 Age-related osteoporosis without current pathological fracture; Q85.00 Neurofibromatosis, unspecified; Z79.899 Other long term (current) drug therapy; Z79.890 Hormone replacement therapy

== ENCOUNTER 2021-12-16 06:43 | Day surgery (SDC) | payer OTHER ==
[~2021-12-16] VITALS: Ht 154.9 cm; Wt 47.2 kg
[~2021-12-16 06:43] MED LIST changes: +CLON1TAB8; +HYDR-3713 PO; +IBUP200T46 PO; +LEVO25TA5; +LEXA1TAB; +LR 1,000 ML IV ONE; +LUBI8CAP; +ceFAZolin SOD 2 GM in IV 1 EA IV ONE
[2021-12-16] MEDS ORDERED: fentaNYL 100 MCG/2 ML INJECTION IV PRN ×2 (07:01→13:05)
[2021-12-16] MEDS ORDERED: MIDAZOLAM INJ 2MG/2ML VIAL (J2250 PER 1MG) IV PRN (07:01)
[2021-12-16 07:16] LABS: HEMATOCRIT 35.1 % (36.0-47.0); HEMOGLOBIN 11.1 g/dl (12.0-15.5); MEAN CORPUSCULAR HEMOGLOBIN 31.5 pg (27.0-33.0); MEAN CORPUSCULAR HGB CONC 31.6 g/dl (32.0-36.5); MEAN CORPUSCULAR VOLUME 99.7 fl (80.0-96.0); PLATELET COUNT, AUTOMATED 402 10^3/uL (150-450); RED BLOOD COUNT 3.52 10^6/uL (4.00-5.40); WHITE BLOOD COUNT 5.8 10^3/uL (4.0-10.0)
[2021-12-16] MEDS ORDERED: dexameTHASONE 4 MG/ML 1ML VIAL (J1100 PER 1MG) As Ordered ONE (07:20)
[2021-12-16] MEDS ORDERED: fentaNYL 100 MCG/2 ML INJECTION As Ordered ONE (07:20)
[2021-12-16] MEDS ORDERED: propofoL 200 MG/20 ML VIAL As Ordered ONE (07:20)
[2021-12-16] MEDS ORDERED: MIDAZOLAM INJ 2MG/2ML VIAL (J2250 PER 1MG) As Ordered ONE (07:20)
[2021-12-16] MEDS ORDERED: ONDANSETRON 4MG/2ML VIAL As Ordered ONE (07:20)
[2021-12-16] MEDS ORDERED: LIDOCAINE 2% 100MG/5ML SDV (FOR ANES.) As Ordered ONE (07:20)
[2021-12-16] MEDS ORDERED: ROCURONIUM BROMIDE 50 MG/5 ML VIAL As Ordered ONE (07:21)
[2021-12-16 07:36] LABS: BLOOD UREA NITROGEN 8 MG/DL (7-18); CALCIUM LEVEL 9.2 MG/DL (8.5-10.1); CARBON DIOXIDE LEVEL 26 MEQ/L (21-32); CHLORIDE LEVEL 111 MEQ/L (98-107); CREATININE FOR GFR 0.62 MG/DL (0.55-1.30); GLOMERULAR FILTRATION RATE > 60.0 (>51); GLUCOSE, FASTING 84 MG/DL (70-100); POTASSIUM SERUM 4.5 MEQ/L (3.5-5.1); SODIUM LEVEL 145 MEQ/L (136-145)
[2021-12-16] MEDS ORDERED: ROPIvacaine 0.5% 30ML INJECTION (J2795 PER 1MG) XX ONE (07:55)
[2021-12-16] MEDS ORDERED: dexameTHASONE 10MG/1ML VIAL PRES.FREE (J1100 PER 1MG) XX ONE (07:55)
[2021-12-16] MEDS ORDERED: EPINEPHrine INJ 1 MG/ML 1ML AMP XX ONE (07:55)
[2021-12-16] MEDS ORDERED: BACITRACIN OINTMENT 30GM TUBE As Ordered ONE (09:54)
[2021-12-16] MEDS ORDERED: BUPIVACAINE/EPIN 0.25% 30 ML VIAL As Ordered ONE (09:54)
[2021-12-16] MEDS ORDERED: ePHEDrine SULFATE 25 MG/5 ML(5MG/ML) SYRINGE As Ordered ONE (11:48)
[2021-12-16] MEDS ORDERED: SUGAMMADEX SODIUM 500 MG/5 ML VIAL (BRIDION) As Ordered ONE (12:19)
[2021-12-16] MEDS ORDERED: oxyCODONE 5MG TAB PO PRN (13:05)
[2021-12-16] MEDS ORDERED: LR 1,000 ML IV SCH (13:05)
[2021-12-16] MEDS ORDERED: ONDANSETRON 4MG/2ML VIAL IV PRN (13:05)
[2021-12-16 13:37] VITALS: BP 110/61
== END 2021-12-16 14:19 | disposition home or self-care (01) ==
LOC: M SDC 06:43
PROVIDERS: ATTEND Orthopaedic Surgery Hand Surgery
DX: S42.202A Unspecified fracture of upper end of left humerus, initial encounter for closed fracture (principal); W01.0XXA Fall on same level from slipping, tripping and stumbling without subsequent striking against object, initial encounter; F32.A Depression, unspecified; F41.9 Anxiety disorder, unspecified; E03.9 Hypothyroidism, unspecified; Z79.899 Other long term (current) drug therapy; Z79.890 Hormone replacement therapy
CPT/HCPCS: 23615; 36415; 76000; 80048; 81025; 85027; 93005; C1713; J0171; J0690; J1100; J2250; J2405; J2795; J3010

== ENCOUNTER → 2021-12-29 | Outpatient (CLI) | payer OTHER ==
[~2021-12-29] MED LIST changes: -LR 1,000 ML IV ONE; -ceFAZolin SOD 2 GM in IV 1 EA IV ONE
== END ==
LOC: M SOG 07:59
PROVIDERS: ATTEND Physician Assistant
DX: S42.202A Unspecified fracture of upper end of left humerus, initial encounter for closed fracture (principal); X58.XXXA Exposure to other specified factors, initial encounter; Y92.9 Unspecified place or not applicable; Y93.9 Activity, unspecified; Y99.9 Unspecified external cause status

== ENCOUNTER → 2022-02-02 | Outpatient (CLI) | payer OTHER | LOC: M SOG 08:01 | PROVIDERS: ATTEND Orthopaedic Surgery Hand Surgery | DX: S42.222D 2-part displaced fracture of surgical neck of left humerus, subsequent encounter for fracture with routine healing (principal) ==

== ENCOUNTER → 2022-03-18 | Outpatient (CLI) | payer OTHER | LOC: M SOG 09:48 | PROVIDERS: ATTEND Orthopaedic Surgery Hand Surgery | DX: S42.222D 2-part displaced fracture of surgical neck of left humerus, subsequent encounter for fracture with routine healing (principal); M85.812 Other specified disorders of bone density and structure, left shoulder ==

== ENCOUNTER → 2022-08-18 | Outpatient (REF) | payer OTHER | LOC: M SFHCDERM 13:14 | PROVIDERS: ATTEND Nurse Practitioner Family | DX: Q85.00 Neurofibromatosis, unspecified (principal) ==

== ENCOUNTER 2022-10-13 20:32 | Emergency (ER) | payer OTHER ==
[~2022-10-13] VITALS: Ht 154.9 cm; Wt 50.9 kg
[2022-10-13 21:19] LABS: HEMATOCRIT 34.3 % (36.0-47.0); HEMOGLOBIN 10.4 g/dl (12.0-15.5); MEAN CORPUSCULAR HEMOGLOBIN 24.1 pg (27.0-33.0); MEAN CORPUSCULAR HGB CONC 30.3 g/dl (32.0-36.5); MEAN CORPUSCULAR VOLUME 79.6 fl (80.0-96.0); PLATELET COUNT, AUTOMATED 415 10^3/uL (150-450); RED BLOOD COUNT 4.31 10^6/uL (4.00-5.40); WHITE BLOOD COUNT 6.6 10^3/uL (4.0-10.0)
[2022-10-13 21:32] LABS: AMPHETAMINES LEVEL URINE NEGATIVE (NEGATIVE); BARBITURATES URINE NEGATIVE (NEGATIVE); BENZODIAZEPINES URINE NEGATIVE (NEGATIVE); CANNABINOIDS URINE NEGATIVE (NEGATIVE); COCAINE METABOLITE URINE NEGATIVE (NEGATIVE); OPIATES URINE NEGATIVE (NEGATIVE); PHENCYCLIDINE URINE NEGATIVE (NEGATIVE)
[2022-10-13 21:33] LABS: METHADONE URINE NEGATIVE (NEGATIVE)
[2022-10-13 21:41] LABS: HCG, SERUM QUALITATIVE NEGATIVE (NEGATIVE)
[2022-10-13 21:43] LABS: ETHYL ALCOHOL (ETHANOL) 0.291 % (0.000-0.010); SALICYLATE LEVEL < 3.0 MG/DL (<30)
[2022-10-13 21:44] LABS: ACETAMINOPHEN LEVEL < 2.0 UG/ML (10.0-20.0); ALBUMIN 3.4 G/DL (3.2-5.2); ALKALINE PHOSPHATASE 80 U/L (46-116); ALT/SGPT 16 U/L (7.0-40); AST/SGOT 22 U/L (<34); BILIRUBIN,DIRECT < 0.1 MG/DL (<0.4); BILIRUBIN,TOTAL 0.2 MG/DL (0.3-1.2); BLOOD UREA NITROGEN 14 MG/DL (9-23); CALCIUM LEVEL 9.4 MG/DL (8.5-10.1); CARBON DIOXIDE LEVEL 24 MMOL/L (20-31); CHLORIDE LEVEL 103 MMOL/L (98-107); CREATININE FOR GFR 0.61 MG/DL (0.55-1.30); GLOMERULAR FILTRATION RATE > 60.0 (>51); GLUCOSE, FASTING 85 MG/DL (60-100); POTASSIUM SERUM 4.1 MMOL/L (3.5-5.1); SODIUM LEVEL 138 MMOL/L (136-145); TOTAL PROTEIN 6.9 G/DL (5.7-8.2)
[2022-10-13 21:46] LABS: THYROID STIMULATING HORMONE 8.204 uIU/ML (0.55-4.78)
[2022-10-14] MEDS ORDERED: clonazePAM 1 MG TAB PO ONE (04:05)
[2022-10-14 07:25] VITALS: BP 134/71
== END 2022-10-14 07:30 | disposition home or self-care (01) ==
LOC: M ED 20:32
DX: F10.129 Alcohol abuse with intoxication, unspecified (principal); Q85.00 Neurofibromatosis, unspecified; F32.A Depression, unspecified; F41.9 Anxiety disorder, unspecified; Z79.899 Other long term (current) drug therapy

== ENCOUNTER → 2023-02-14 | Outpatient (REF) | payer OTHER, MEDICAID ==
[~2023-02-14] MED LIST changes: +ETON1VAG7 PV; -NUVAMIS2 PV
[2023-02-14 18:04] LABS: BASO # 0.1 10^3/uL (0.0-0.2); BASO % 1.1 % (0.0-1.0); EOS # 0.1 10^3/uL (0.0-0.5); EOS % 1.6 % (0.0-3.0); HEMATOCRIT 35.4 % (36.0-47.0); HEMOGLOBIN 10.6 g/dl (12.0-15.5); LYMPH # 1.1 10^3/uL (1.5-5.0); LYMPH % 18.4 % (24.0-44.0); MEAN CORPUSCULAR HEMOGLOBIN 24.9 pg (27.0-33.0); MEAN CORPUSCULAR HGB CONC 29.9 g/dl (32.0-36.5); MEAN CORPUSCULAR VOLUME 83.1 fl (80.0-96.0); MONO # 0.8 10^3/uL (0.0-0.8); MONO % 13.7 % (2.0-8.0); NEUTROPHILS # 3.7 10^3/uL (1.5-8.5); NEUTROPHILS % 64.8 % (36.0-66.0); PLATELET COUNT, AUTOMATED 440 10^3/uL (150-450); RED BLOOD COUNT 4.26 10^6/uL (4.00-5.40); WHITE BLOOD COUNT 5.7 10^3/uL (4.0-10.0)
[2023-02-14 18:31] LABS: ALBUMIN 3.7 G/DL (3.2-5.2); ALKALINE PHOSPHATASE 92 U/L (46-116); ALT/SGPT 17 U/L (7.0-40); AST/SGOT 19 U/L (<34); BILIRUBIN,TOTAL 0.3 MG/DL (0.3-1.2); BLOOD UREA NITROGEN 9 MG/DL (9-23); CALCIUM LEVEL 9.8 MG/DL (8.5-10.1); CARBON DIOXIDE LEVEL 26 MMOL/L (20-31); CHLORIDE LEVEL 103 MMOL/L (98-107); CHOLESTEROL LEVEL 242 MG/DL (<200); CHOLESTEROL RISK RATIO 2.48 (<5); CREATININE FOR GFR 0.64 MG/DL (0.55-1.30); GLOMERULAR FILTRATION RATE > 60.0 (>51); GLUCOSE, FASTING 85 MG/DL (60-100); HDL CHOLESTEROL 97.4 MG/DL (>40); LDL CHOLESTEROL 126.2 MG/DL (<100); MAGNESIUM LEVEL 1.9 MG/DL (1.8-2.4); NON-HDL-C 144.6 MG/DL; POTASSIUM SERUM 4.8 MMOL/L (3.5-5.1); SODIUM LEVEL 137 MMOL/L (136-145); THYROID STIMULATING HORMONE 7.909 uIU/ML (0.55-4.78); TOTAL PROTEIN 7.4 G/DL (5.7-8.2); TRIGLYCERIDES LEVEL 92 MG/DL (<150)
[2023-02-14 18:32] LABS: TOTAL 25(OH) VITAMIN D 52.3 NG/ML (20.0-100.0)
== END ==
LOC: M LAB REF 16:45
PROVIDERS: ATTEND Nurse Practitioner Family
DX: Z13.228 Encounter for screening for other metabolic disorders (principal)

== ENCOUNTER → 2023-06-01 | Outpatient (REF) | payer OTHER, MEDICAID | LOC: M LAB REF 12:42 | PROVIDERS: ATTEND Nurse Practitioner Family | DX: E03.9 Hypothyroidism, unspecified (principal) ==

== ENCOUNTER 2023-08-29 07:03 | Day surgery (SDC) | payer OTHER ==
[~2023-08-29] VITALS: Ht 154.9 cm; Wt 52.2 kg
[~2023-08-29 07:03] MED LIST changes: +KLON1TAB PO; +LEXA1TAB PO; +NS 1,000 ML IV ONE; +SYNT50TA PO; +TRAZ-186 PO
[2023-08-29] MEDS ORDERED: LIDOCAINE 2% 100MG/5ML SDV (FOR ANES.) As Ordered ONE (08:24)
[2023-08-29] MEDS ORDERED: propofoL 500 MG/50 ML VIAL As Ordered ONE (08:24)
[2023-08-29 08:46] VITALS: TEMP 96.8
[2023-08-29 09:05] VITALS: BP 109/64; O2SAT 98
== END 2023-08-29 09:20 | disposition home or self-care (01) ==
LOC: M OPP 07:03
PROVIDERS: ATTEND Internal Medicine Gastroenterology
DX: Z12.11 Encounter for screening for malignant neoplasm of colon (principal); Z86.010 Personal history of colon polyps; Q43.8 Other specified congenital malformations of intestine; Z79.890 Hormone replacement therapy; Z79.899 Other long term (current) drug therapy

== ENCOUNTER → 2023-10-14 | Outpatient (REF) | payer OTHER, MEDICAID ==
[~2023-10-14] MED LIST changes: -KLON0.5T PO; +KLON0.5T8 PO; -KLON1TAB PO; +KLON1TAB13 PO; -NS 1,000 ML IV ONE
== END ==
LOC: M LAB REF 12:47
PROVIDERS: ATTEND Nurse Practitioner Family
DX: E03.9 Hypothyroidism, unspecified (principal)

== ENCOUNTER → 2024-01-11 | Outpatient (CLI) | payer OTHER ==
[~2024-01-11] MED LIST changes: +HYDR-4571 PO
== END ==
LOC: M SOG 07:52
PROVIDERS: ATTEND Orthopaedic Surgery
DX: S42.302A Unspecified fracture of shaft of humerus, left arm, initial encounter for closed fracture (principal)

== ENCOUNTER → 2024-02-17 | Outpatient (CLI) | payer OTHER | LOC: M SOG 12:53 | PROVIDERS: ATTEND Orthopaedic Surgery | DX: S42.302A Unspecified fracture of shaft of humerus, left arm, initial encounter for closed fracture (principal); Y93.9 Activity, unspecified; Y92.9 Unspecified place or not applicable ==

== ENCOUNTER → 2024-02-29 | Outpatient (REF) | payer OTHER, MEDICAID ==
[2024-02-29 19:09] LABS: ALBUMIN 3.9 G/DL (3.2-5.2); ALKALINE PHOSPHATASE 88 U/L (46-116); ALT/SGPT 21 U/L (7.0-40); AST/SGOT 21 U/L (<34); BILIRUBIN,TOTAL 0.4 MG/DL (0.3-1.2); BLOOD UREA NITROGEN 14 MG/DL (9-23); CALCIUM LEVEL 9.9 MG/DL (8.5-10.1); CARBON DIOXIDE LEVEL 26 MMOL/L (20-31); CHLORIDE LEVEL 101 MMOL/L (98-107); CHOLESTEROL LEVEL 222 MG/DL (<200); CHOLESTEROL RISK RATIO 2.96 (<5); GLOMERULAR FILTRATION RATE > 60.0 (>51); GLUCOSE, FASTING 79 MG/DL (60-100); HDL CHOLESTEROL 74.8 MG/DL (>40); LDL CHOLESTEROL 131.8 MG/DL (<100); NON-HDL-C 147.2 MG/DL; POTASSIUM SERUM 4.2 MMOL/L (3.5-5.1); SODIUM LEVEL 135 MMOL/L (136-145); TOTAL PROTEIN 6.9 G/DL (5.7-8.2); TRIGLYCERIDES LEVEL 77 MG/DL (<150)
[2024-02-29 19:10] LABS: BASO # 0.1 10^3/uL (0.0-0.2); EOS # 0.2 10^3/uL (0.0-0.5); EOS % 2.9 % (0.0-3.0); HEMATOCRIT 43.3 % (36.0-47.0); HEMOGLOBIN 13.6 g/dl (12.0-15.5); LYMPH # 1.3 10^3/uL (1.5-5.0); LYMPH % 18.7 % (24.0-44.0); MEAN CORPUSCULAR HEMOGLOBIN 31.7 pg (27.0-33.0); MEAN CORPUSCULAR HGB CONC 31.4 g/dl (32.0-36.5); MEAN CORPUSCULAR VOLUME 100.9 fl (80.0-96.0); MONO # 0.8 10^3/uL (0.0-0.8); MONO % 11.9 % (2.0-8.0); NEUTROPHILS # 4.6 10^3/uL (1.5-8.5); NEUTROPHILS % 65.1 % (36.0-66.0); PLATELET COUNT, AUTOMATED 304 10^3/uL (150-450); RED BLOOD COUNT 4.29 10^6/uL (4.00-5.40); THYROID STIMULATING HORMONE 2.287 uIU/ML (0.55-4.78)
[2024-02-29 19:23] LABS: HEMOGLOBIN A1c 4.7 % (4.0-6.0)
== END ==
LOC: M LAB REF 18:21
PROVIDERS: ATTEND Nurse Practitioner Family
DX: E03.9 Hypothyroidism, unspecified (principal); Z13.220 Encounter for screening for lipoid disorders; Z13.1 Encounter for screening for diabetes mellitus

== ENCOUNTER → 2024-04-25 | Outpatient (CLI) | payer OTHER | LOC: M SOG 09:41 | PROVIDERS: ATTEND Orthopaedic Surgery | DX: S42.302D Unspecified fracture of shaft of humerus, left arm, subsequent encounter for fracture with routine healing (principal) ==

== ENCOUNTER → 2024-06-27 | Outpatient (CLI) | payer OTHER | LOC: M SOG 07:59 | PROVIDERS: ATTEND Physician Assistant | DX: S42.032D Displaced fracture of lateral end of left clavicle, subsequent encounter for fracture with routine healing (principal) ==

== ENCOUNTER → 2024-08-30 | Outpatient (REF) | payer OTHER, MEDICAID | LOC: M LAB REF 16:46 | PROVIDERS: ATTEND Nurse Practitioner Family | DX: E03.9 Hypothyroidism, unspecified (principal) ==

== ENCOUNTER → 2024-09-28 | Outpatient (REF) | payer OTHER, MEDICAID ==
[2024-09-28 15:00] LABS: ALBUMIN 3.2 G/DL (3.2-5.2); ALKALINE PHOSPHATASE 72 U/L (35-104); ALT/SGPT 17 U/L (7.0-40); AST/SGOT 19 U/L (<34); BILIRUBIN,TOTAL 0.2 MG/DL (0.3-1.2); BLOOD UREA NITROGEN 9 MG/DL (9-23); CALCIUM LEVEL 8.8 MG/DL (8.5-10.1); CARBON DIOXIDE LEVEL 26 MMOL/L (20-31); CHLORIDE LEVEL 108 MMOL/L (98-107); CHOLESTEROL LEVEL 197 MG/DL (<200); CHOLESTEROL RISK RATIO 2.48 (<5); CREATININE FOR GFR 0.59 MG/DL (0.55-1.30); GLOMERULAR FILTRATION RATE > 60.0 (>51); GLUCOSE, FASTING 77 MG/DL (60-100); HDL CHOLESTEROL 79.2 MG/DL (>40); LDL CHOLESTEROL 85.8 MG/DL (<100); NON-HDL-C 117.8 MG/DL; POTASSIUM SERUM 4.3 MMOL/L (3.5-5.1); SODIUM LEVEL 143 MMOL/L (136-145); TOTAL PROTEIN 6.6 G/DL (5.7-8.2); TRIGLYCERIDES LEVEL 160 MG/DL (<150)
[2024-09-28 15:01] LABS: FREE T4 0.93 NG/DL (0.89-1.76)
[2024-09-28 15:02] LABS: THYROID STIMULATING HORMONE 5.468 uIU/ML (0.55-4.78)
== END ==
LOC: M LAB REF 13:00
PROVIDERS: ATTEND Nurse Practitioner Family
DX: E03.9 Hypothyroidism, unspecified (principal); E78.5 Hyperlipidemia, unspecified

== ENCOUNTER → 2024-11-30 | Outpatient (REF) | payer OTHER, MEDICAID ==
[~2024-11-30] MED LIST changes: -AMBI10TA PO; +ZOLP-533 PO
== END ==
LOC: M LAB REF 12:35
PROVIDERS: ATTEND Nurse Practitioner Family
DX: E03.9 Hypothyroidism, unspecified (principal)

== ENCOUNTER → 2025-06-14 | Outpatient (REF) | payer OTHER, MEDICAID | LOC: M LAB REF 12:32 | PROVIDERS: ATTEND Nurse Practitioner Family | DX: E03.9 Hypothyroidism, unspecified (principal) ==